=== PATIENT | female | born 1955 | race Hispanic/Latino ===

== ENCOUNTER 2023-08-09 16:49 | Emergency (ER) | payer OTHER ==
[~2023-08-09 16:49] MED LIST: Iopamidol 370 76% 100 ML VIAL ONE
[2023-08-09 19:25] LABS: Bilirubin Neg (Negative); Blood, Urine 150 (Negative); Clarity Slightly Cloudy (Clear); Glucose, Urine (Dipstick) Normal (Negative); Ketone, Urine 150 mg/dL (Negative); Leukocyte 500 (Negative); Nitrite Negative (Negative); Protein, Urine (Dipstick) 30 mg/dl (Neg-Trace); Urobilinogen Normal mg/dL (Less than 2)
[2023-08-09 19:31] LABS: CAUTI Indications for Culture Pelvic or flank pain; Renal Epithelial 0-3 HPF (None Seen); Squamous Epithelial 0-3 HPF (0-3); WBC/HPF Greater Than 50 HPF (0-3)
[2023-08-09] MEDS ORDERED: Morphine 4 MG/ML VIAL ONE (19:31)
[2023-08-09] MEDS ORDERED: Ondansetron PF 4 MG/2 ML Vial ONE (19:31)
[2023-08-09 19:32] LABS: Yeast-Budding 1+ HPF (None Seen)
[2023-08-09 19:34] LABS: Bacteria/HPF 2+ HPF (None Seen)
[2023-08-09 19:35] LABS: Mucous/LPF Rare LPF (<2+)
[2023-08-09 19:36] LABS: Urine Culture Reflex Yes Yes
[2023-08-09 20:58] LABS: #Eosinphils 0.1 10x3/uL (0.0-0.5); #Monocytes 0.8 10x3/uL (0.0-1.1); #Neutrophils 5.8 10x3/uL (1.5-8.4); %Basophils 0.3 % (0.0-2.0); %Eosinophils 0.7 % (0.0-6.0); %Lymphocytes 25.3 % (18.0-47.0); %Monocytes 8.5 % (0.0-10.0); %Neutrophils 64.6 % (40.0-75.0); Hematocrit 34.1 % (34.9-44.5); Hemoglobin 11.2 g/dL (12.0-15.5); Mean Corpuscular HGB CONC 32.8 g/dL (32.0-36.0); Mean Corpuscular Hemoglobin 30.6 pg (27.0-33.0); Mean Corpuscular Volume 93.2 fl (81.6-98.3); Mean Platelet Volume 10.2 fl (7.4-10.4); Platelet Count 380 10x3/uL (150-450); RBC Distribution Width 17.2 % (11.5-14.5); Red Blood Cell (RBC) Count 3.66 10x6/uL (3.90-5.03)
[2023-08-09 21:22] LABS: ALT (SGPT) 12 U/L (8-55); AST (SGOT) 21 U/L (5-34); Albumin 3.9 g/dL (3.4-4.8); Alkaline Phosphatase 128 U/L (40-110); Anion Gap 23 mmol/L (10-20); BUN (Urea Nitrogen) 18 mg/dL (9.8-20.1); Bilirubin, Total 0.5 mg/dL (0.2-1.2); Calc. Creatinine Clearance 0 mL/min (70-130); Calcium 8.9 mg/dL (7.8-10.44); Carbon Dioxide 14 mmol/L (23-31); Chloride 99 mmol/L (98-107); Estimated GFR 71; Globulin 2.6 g/dL (2.4-3.5); Glucose 66 mg/dL (80-115); Lipase 47 U/L (8-78); Magnesium 1.3 mg/dL (1.6-2.6); Potassium 4.2 mmol/L (3.5-5.1); Protein, Total 6.5 g/dL (5.8-8.1); Sodium 132 mmol/L (136-145)
[2023-08-09 21:28] LABS: Troponin I Less than 0.010 ng/mL (< 0.028)
[2023-08-09] MEDS ORDERED: Magnesium 2 GM/50 ML BAG (IN WATER) ONE (21:34)
[2023-08-09] MEDS ORDERED: Piperacillin/Tazobactam 4.5 GM VIAL ONE (22:55)
[2023-08-10] MEDS ORDERED: Ondansetron PF 4 MG/2 ML Vial ONE (04:13)
== END 2023-08-10 04:26 | disposition short-term general hospital (02) ==
LOC: CSHERS 16:49
DX: K65.1 Peritoneal abscess (principal); I10 Essential (primary) hypertension; Z86.16 Personal history of COVID-19
CPT/HCPCS: 36415; 71045; 71275; 74177; 80053; 81001; 83690; 83735; 84484; 85025; 87086; 93005; 96361; 96365; 96367; 96375; 96376; J2270; J2405; J2543; J3475; Q9967